=== PATIENT | female | born 1990 | race African-American/Black ===

== ENCOUNTER → 2021-05-15 | Emergency (ER) | payer SELFPAY ==
[~2021-05-15] MED LIST: Acetaminophen 500 MG TAB ONE
[2021-05-16 22:47] LABS: SARS-CoV-2 PCR by NAA DETECTED (NotDetected)
== END ==
LOC: NAV ERS 18:15
DX: U07.1 COVID-19 (principal)
CPT/HCPCS: 99283; U0003; U0005